=== PATIENT | female | born 1945 | race Caucasian/White ===

== ENCOUNTER 2017-01-24 10:26 | Emergency (ER) | payer MEDICARE, BC ==
[2017-01-24] MEDS ORDERED: 0.9 % SODIUM CHLORIDE 1,000 ML BAG IV ONE (10:36)
[2017-01-24] MEDS ORDERED: ONDANSETRON HCL IV 4 MG/2 ML VIAL IVP ONE (10:36)
--- NOTE | 2017-01-24 10:43 | Emergency Department Record ---
History of Present Illness - General Chief complaint: Nausea, Vomiting, Diarrhea Stated complaint: NAUSEA/FEVER/COUGH Time Seen by Provider: 01/24/17 10:36 Source: Patient Mode of Arrival: Wheelchair Limitations: No limitations - History of Present Illness Initial comments: 71 yo female presents not feeling well since Tuesday. the symptoms started with cough, fevers, chills. The cough is somewhat productive. She did not have a FLU shot this year. She has had some associated nausea with some dry heaves. No diarrhea. No rash. She has been very fatigued. She has not taken her home medications for 2 days as she has been resting in bed. PCP [facility]. ESPINAL complaint: Nausea, Vomiting, Other (Fevers, chills, cough) Onset/Timin -: Days(s) Associated Abdominal Pain: Yes Location: LLQ, RLQ Radiation: None Severity: Moderate Quality: Aching Consistency: Intermittent Improves with: None Worsens with: None Associated Symptoms: Cough, Fever/chills, Loss of appetite, Malaise, Nausea/ vomiting - Related Data Home Medications Medication Instructions Recorded Confirmed Last Taken Amlodipine Besylate [Norvasc] 5 mg PO DAILY 06/22/14 01/24/17 01/22/17 Hydrochlorothiazide 50 mg PO DAILY 06/22/14 01/24/17 01/22/17 Levothyroxine Sodium 100 mcg PO DAILY 06/22/14 01/24/17 01/22/17 Losartan Potassium 100 mg PO DAILY 06/22/14 01/24/17 01/22/17 Metformin HCl 500 mg PO BID 06/22/14 01/24/17 01/22/17 Venlafaxine HCl [Effexor Xr] 150 mg PO DAILY 06/23/14 01/24/17 01/22/17 Aspirin 325 mg PO DAILY 06/03/15 01/24/17 01/22/17 Insulin Detemir [Levemir] 50 unit SQ QHS 06/03/15 01/24/17 01/22/17 Metoprolol Succinate [Toprol Xl] 50 mg PO QHS 01/24/17 01/24/17 01/22/17 Metoprolol Succinate [Toprol Xl] 100 mg PO QHS 01/24/17 01/24/17 01/22/17 Previous Rx's Medication Instructions Recorded Omeprazole 40 mg PO BID #60 capsule. 05/20/16 Ondansetron [Zofran Odt] 4 mg PO Q8H #15 tab.rapdis 01/24/17 Oseltamivir Phosphate [Tamiflu] 75 mg PO BID #10 capsule 01/24/17 Allergies Allergy/AdvReac Type Severity Reaction Status Date / Time enalapril maleate Allergy Severe DIFFICULTY Verified 01/24/17 10:33 [From Vasotec] BREATHING enalaprilat dihydrate Allergy Severe DIFFICULTY Verified 01/24/17 10:33 [From Vasotec] BREATHING Travel Screening - Travel/Exposure Within Last 30 Days Have you traveled within the last 30 days?: No Review of Systems Constitutional: Reports: Chills, Fever, Malaise, Night sweats, Weakness Eyes: Denies: Eye discharge, Eye pain, Photophobia, Vision change ENT: Reports: Congestion Respiratory: Reports: Cough. Denies: Dyspnea, Hemoptysis, Stridor, Wheezes Cardiovascular: Denies: Chest pain, Palpitations, Syncope Endocrine: Reports: Fatigue. Denies: Polydipsia, Polyuria Gastrointestinal: Reports: As per HPI, Abdominal pain, Nausea, Vomiting. Denies : Diarrhea Genitourinary: Denies: Dysuria, Urgency Musculoskeletal: Reports: Myalgia. Denies: Arthralgia, Back pain, Joint swelling, Neck pain Skin: Denies: Bruising, Change in color Neurological: Denies: Confusion, Headache, Numbness, Weakness Psychiatric: Denies: Anxiety Past Medical History - SOCIAL HISTORY Smoking Status: Heavy tobacco smoker (>10/day) Alcohol Use: None Drug Use: None - RESPIRATORY Hx Respiratory Disorders: No - CARDIOVASCULAR Hx Cardio Disorders: Yes Hx Hypertension: Yes - NEURO Hx Neuro Disorders: No - GI Hx GI Disorders: Yes Hx Reflux: Yes Hx Ulcer: Yes Comment:: barrats esophagus. - Hx Genitourinary Disorders: No - ENDOCRINE Hx Endocrine Disorders: Yes Hx Diabetes: Yes Hx Thyroid Disease: Yes - MUSCULOSKELETAL Hx Musculoskeletal Disorders: Yes Hx Arthritis: Yes Comment:: post polio syndrome of legs - PSYCH Hx Psych Problems: Yes Hx Depression: Yes - HEMATOLOGY/ONCOLOGY Hx Hematology/Oncology Disorders: No Family Medical History Any Significant Family History?: Yes Hx Cancer: Father, Brother/Sister Hx Diabetes: Mother Hx Heart Disease: Mother *Resp Comment: aunt with TB Physical Exam - General General Appearance: Alert, Oriented x3, Cooperative, No acute distress Limitations: No limitations - Head Head exam: Normal inspection - Eye Eye exam: Normal appearance, PERRL. negative: Conjunctival injection, Periorbital swelling - ENT ENT exam: Normal exam, Mucous membranes moist Ear exam: Normal external inspection Nasal Exam: Normal inspection Mouth exam: Normal external inspection Teeth exam: Normal inspection Throat exam: Normal inspection - Neck Neck exam: Normal inspection, Full ROM. negative: Lymphadenopathy, Tenderness - Respiratory Respiratory exam: Normal lung sounds bilaterally. negative: Respiratory distress, Rhonchi, Stridor, Wheezes - Cardiovascular Cardiovascular Exam: Regular rate, Normal rhythm, Normal heart sounds - GI/Abdominal GI/Abdominal exam: Soft, Tenderness (mild lower abdominal tenderness). negative : Distended, Rebound, Rigid - Rectal Rectal exam: Deferred - exam: Deferred - Extremities Extremities exam: Normal inspection, Full ROM, Normal capillary refill. negative: Tenderness - Back Back exam: Reports: Normal inspection, Full ROM. Denies: CVA tenderness (R), CVA tenderness (L), Muscle spasm, Paraspinal tenderness, Rash noted, Tenderness , Vertebral tenderness - Neurological Neurological exam: Alert, Normal gait, Oriented X3, Reflexes normal - Psychiatric Psychiatric exam: Normal affect, Normal mood - Skin Skin exam: Dry, Intact, Normal color, Warm Course Vital Signs 01/24/17 10:28 Temperature 97.4 F L Pulse Rate 97 H Respiratory 18 Rate Blood Pressure 130/69 Pulse Ox 96 - Reevaluation(s) Reevaluation #1: CBC reviewed. Mildly low platelets at 100 otherwise negative CMP glucose 225. 01/24/17 11:16 Reevaluation #2: The Tamiflu is positive for B. 01/24/17 11:49 Medical Decision Making - Lab Data Result diagrams: 01/24/17 10:50 01/24/17 10:50 Disposition Clinical Impression: Influenza B Disposition: Home, Self-Care Condition: (1) Good Instructions: Influenza (ED) Additional Instructions: Rest and stay well hydrated Return if worse, vomiting, short of breath, dehydration or any new concerns Take the Tamiflu twice daily Prescriptions: Oseltamivir Phosphate [Tamiflu] 75 mg PO BID #10 capsule Ondansetron [Zofran Odt] 4 mg PO Q8H #15 tab.rapdis Forms: Patient Portal Access Time of Disposition: 11:51
[2017-01-24 11:06] LABS: HEMATOCRIT 44.1 % (35.0-47.0); MEAN CELL VOLUME 82.7 fl (81-97); MEAN CORPUSCULAR HEMOGLOBIN 28.1 pg (27-33); MEAN PLATELET VOLUME 12.6 fl (7.4-10.4); PLATELET COUNT 100 K/uL (130-400); RED BLOOD COUNT 5.33 M/uL (3.80-5.40); RED CELL DISTRIBUTION WIDTH 15.1 % (11.5-14.5); WHITE BLOOD COUNT W/O DIFF 8.7 K/uL (4.2-12.2)
[2017-01-24 11:11] LABS: ALB/GLOB RATIO 1.3 (1.1-1.8); ANION GAP 12.2 (7-16); BILIRUBIN,TOTAL 0.48 mg/dL (0.2-1.3); CARBON DIOXIDE 24.8 mmol/L (22-30); TOTAL PROTEIN 7.2 gm/dL (6.3-8.2)
[2017-01-24 11:40] LABS: PLATELET ESTIMATE NORMAL (NORMAL)
[2017-01-24] MEDS ORDERED: OSTELTAMIVIR 75 MG CAP PO ONE (11:48)
[2017-01-24 11:56] LABS: INFLUENZA A NEGATIVE (NEGATIVE); INFLUENZA B POSITIVE (NEGATIVE)
--- NOTE | 2017-01-27 08:54 | RADIOLOGY REPORT ---
EXAM: CHEST, TWO VIEWS HISTORY: SHORTNESS OF BREATH. COUGH AND DIZZINESS FOR FOUR DAYS. TECHNIQUE: Upright PA and lateral views of the chest were obtained. Comparison: CT of the chest with contrast dated 12/15/16. FINDINGS: The heart remains normal in size and the pulmonary vasculature is nondilated. The thoracic aorta is mildly atherosclerotic and tortuous. Minor linear scarring versus atelectasis is present in the lateral mid to lower leg lung. The lungs and pleural spaces are otherwise clear. There are degenerative changes of the visualized spine. IMPRESSION: 1. NO RADIOGRAPHIC EVIDENCE OF ACUTE CARDIOPULMONARY DISEASE. 2. MINOR LINEAR SCARRING VERSUS ATELECTASIS IN THE LATERAL MID TO LOWER LEFT LUNG. NOT MENTIONED ABOVE IS MILD BIAPICAL LUNG SCARRING. JOB NUMBER: [id number] [facility]
== END 2017-01-24 12:50 | disposition home or self-care (01) ==
LOC: ER 10:26
DX: J10.1 Influenza due to other identified influenza virus with other respiratory manifestations (principal); R11.2 Nausea with vomiting, unspecified; R19.7 Diarrhea, unspecified; R53.83 Other fatigue; I10 Essential (primary) hypertension; F17.210 Nicotine dependence, cigarettes, uncomplicated; E11.9 Type 2 diabetes mellitus without complications; Z79.4 Long term (current) use of insulin
CPT/HCPCS: 71020; 80053; 83690; 85027; 87400; 96361; 96374; 99284; J2405; J7030